=== PATIENT | male | born 1945 | race Caucasian/White ===

== ENCOUNTER 2017-05-02 12:12 | Emergency (ER) | payer OTHER, MEDICARE ==
[~2017-05-02] VITALS: Ht 167.6 cm; Wt 68.0 kg
[~2017-05-02 12:12] MED LIST: CHOLESTEROL MED; ENDOCET 325 MG-1 TA1 PO; HTN MED; MOTRIN 600 MG600 MG PO
--- NOTE | 2017-05-02 13:01 | ED GENERAL ADULT ---
History of Present Illness General Chief Complaint: General Adult Stated Complaint: BOSTON STOOLS Source: patient, old records, PCP Exam Limitations: no limitations Vital Signs & Intake/Output Vital Signs & Intake/Output Vital Signs Date Time Temp Pulse Resp B/P B/P Pulse O2 O2 Flow FiO2 Mean Ox Delivery Rate 05/02 1538 96.6 73 18 138/70 100 Room Air 05/02 1233 97.0 88 20 145/84 97 Room Air Room Air Allergies Coded Allergies: NO KNOWN ALLERGIES (08/03/14) Reconcile Medications Atorvastatin Calcium 40 MG TABLET 1 TAB PO DAILY CHOLESTEROL (Reported) Cholecalciferol (Vitamin D3) (Vitamin D) 1,000 UNIT CAPSULE 1 TAB PO DAILY SUPPLEMENT (Reported) Dexlansoprazole (Dexilant) 60 MG CAP.DR.BP 1 CAP PO DAILY GI (Reported) Fluticasone Propionate 50 MCG/ACTUATION SPRAY.SUSP 1 SPRAY NASB AD PRN ALLERGIES (Reported) Hydrochlorothiazide 25 MG TABLET 1 TAB PO DAILY BP (Reported) Lisinopril 40 MG TABLET 1 TAB PO DAILY BP (Reported) Triage Note: PT TO ED FROM [facility], HAD BLOODWORK YESTERDAY AND SENT IN FOR ABNORMAL LABS, FOR XRAY, US,CT. Triage Nurses Notes Reviewed? yes Onset: Gradual Duration: day(s): (7 DAYS) Timing: no prior history Injury Environment: home Severity: moderate No Modifying Factors: none HPI: Patient is a 71-year-old male presenting to the emergency department with chief complaint of boston stool that started about one week ago. Patient reports that every time he moves his bowels it is boston. Patient denying any associated nausea vomiting fevers or chills chest pain or shortness of breath. Denies any abdominal pain. No urinary frequency urgency or dysuria. He does admit to darker urine in color. He was nervous about the change in stool so he went to see his primary care physician who did blood work. Work showed elevation in his liver function tests and his bilirubin, the primary doctor advised him to come to the emergency department for evaluation for ultrasound of the gallbladder and liver. Patient reports that he could drinking alcohol 4 days ago. No history of withdrawal seizures. Use to drink about 12-15 drinks a day. (FERNANDO TUBBS) Past History Travel History Traveled to [place] past 21 day No Medical History Any Pertinent Medical History? see below for history Neurological: NONE EENT: NONE Cardiovascular: hypertension, hyperlipidemia Respiratory: NONE Gastrointestinal: GERD Hepatic: NONE Renal: NONE Musculoskeletal: NONE Psychiatric: NONE Endocrine: NONE Blood Disorders: NONE Cancer(s): NONE TSO/Reproductive: NONE Surgical History Surgical History: non-contributory Psychosocial History What is your primary language Kenyan Tobacco Use: Quit >30 days ago ETOH Use: heavy use Illicit Drug Use: denies illicit drug use Family History Hx Contributory? No (FERNANDO TUBBS) Review of Systems Review of Systems Constitutional: Reports: no symptoms. Comments Review of systems: See HPI, All other systems negative. Constitutional, no chills fever or weight loss HEENT: No visual changes no sore throat no congestion Cardiovascular: No chest pain ,palpitation , orthopnea or ankle swelling Skin, no jaundice no rashes Respiratory: No dyspnea cough sputum or hemoptysis GI: No nausea no vomiting : No dysuria No hematuria Muscle skeletal: no back pain, no neck pain, Neurologic: No numbness no confusion NO MITCHELL Psych: No stress anxiety or depression,. Heme/endocrine: No bruising no bleeding no polyuria or polydipsia Immunology: No splenectomy or history of AIDS (FERNANDO TUBBS) Physical Exam Physical Exam General Appearance: well developed/nourished, no apparent distress, alert, awake , comfortable Comments: Well-developed well-nourished person in no acute distress HEENT: extraocular motion intact, no nystagmus. Sclera icterus present. Pupils equally round and reactive to light and accommodation. Nose is atraumatic. External auditory canal and Tympanic membranes clear. Pharynx normal. No swelling or edema. Neck: Normal inspection Back: Nontender, no CVA tenderness. Full range of motion Cardiovascular: Regular rate and rhythms no murmurs rubs or gallops, normal JVP Respiratory: Chest nontender. No respiratory distress.breath sounds clear to auscultation bilaterally Abdomen: Soft, nontender nondistended, no appreciable organomegaly. Normal bowel sounds. No ascites, no rebound or guarding. Negative Mcgee's. rectal: Nontender, guaiac-negative, stool appears to be a light white/boston color Extremity: No edema Neuro: Alert oriented x3, motor sensory normal Skin: No appreciable rash on exposed skin, skin is warm and dry. Psych: Mood and affect is normal, memory and judgment is normal. Core Measures ACS in differential dx? No CVA/TIA Diagnosis: No Severe Sepsis Present: No Septic Shock Present: No (FERNANDO TUBBS) Progress Differential Diagnoses I considered the following diagnoses in my evaluation of the patient: Cholecystitis, cholangitis, hepatitis, pancreatic cancer, biliary cancer, pancreatitis, alcoholic hepatitis Plan of Care: Orders Procedure Date/time Status Add-on Test (ER Only) 05/02 1435 Active URINALYSIS 05/02 1428 Complete Add-on Test (ER Only) 05/02 1424 Active LIPASE 05/02 1317 Complete HEPATITIS PANEL 05/02 1317 Complete AMYLASE 05/02 1317 Complete PARTIAL THROMBOPLASTIN TIME 05/02 1301 Complete PROTHROMBIN TIME 05/02 1301 Complete LACTIC ACID 05/02 1301 Complete DIRECT BILIRUBIN 05/02 1301 Complete COMPREHENSIVE METABOLIC PANEL 05/02 1301 Complete CBC WITHOUT DIFFERENTIAL 05/02 1301 Complete TYPE & SCREEN (NOT X-MATCH) 05/02 1301 Complete Laboratory Tests 05/02/17 1601: Lactic Acid Cancelled 05/02/17 1432: Urinalysis MANY H, Urine Color YEL, Urine Clarity CLEAR, Urine pH 6.0, Ur Specific [place] 1.010, Urine Protein TRACE H, Urine Ketones NEG, Urine Nitrite NEG, Urine Bilirubin POS@ICTO H, Urine Urobilinogen 0.2, Ur Leukocyte Esterase NEG, Ur Microscopic SEDIMENT EXAMINED, Urine RBC 1-3, Urine WBC RARE, Ur Epithelial Cells FEW, Urine Bacteria FEW H, Hyaline Casts RARE H, Granular Casts RARE H, Urine Hemoglobin NEG, Urine Glucose NEG 05/02/17 1317: Anion Gap 11, Estimated GFR 50 L, BUN/Creatinine Ratio 12.1, Glucose 103 H, Lactic Acid 0.9, Calcium 9.3, Total Bilirubin 4.4 H, Direct Bilirubin 3.7 H, AST 411 H, ALT 421 H, Alkaline Phosphatase 614 H, Total Protein 7.3, Albumin 4.5, Globulin 2.8, Albumin/Globulin Ratio 1.6, Amylase 235 H, Lipase 709 H, PT 9.5, INR 0.90, APTT 38 H, CBC w Diff NO MAN DIFF REQ, RBC 4.10 L, MCV 94.2 H, MCH 31.9 H, RDW 14.5, MPV 8.5, Gran % 67.4, Lymphocytes % 19.2 L, Monocytes % 10.2 H, Eosinophils % 3.1, Basophils % 0.1, Absolute Granulocytes 6.5, Absolute Lymphocytes 1.8, Absolute Monocytes 1.0 H, Absolute Eosinophils 0.3, Absolute Basophils 0, PUBS MCHC 33.9, Hepatitis A IgM Ab NONREACTIVE, Hep Bs Antigen NONREACTIVE, Hep B Core IgM Ab Conf NONREACTIVE, Hepatitis C Antibody NONREACTIVE Diagnostic Imaging: Viewed by Me: Ultrasound. Discussed w/RAD: Ultrasound. Radiology Impression: PATIENT: MADELYN REDDY PRESENT AGE: 71 PATIENT ACCOUNT NO: [id number] : 43 LOCATION: ER ORDERING PHYSICIAN: FERNANDO DEWITT SERVICE DATE: 05/02/17 EXAM TYPE: US - US-LIMITED ABDOMEN EXAMINATION: US ABDOMEN LIMITED CLINICAL INFORMATION: Elevated liver function tests and bilirubin. Loose stool. COMPARISON: None. TECHNIQUE: Real-time imaging of the right upper quadrant abdominal viscera. Selected static images are provided for interpretation. FINDINGS: Only a small portion of the head and body of the pancreas are well visualized and appear unremarkable. Remaining pancreas is obscured due to overlying bowel gas despite provocative measures. The liver, gallbladder, and intrahepatic biliary tree appear unremarkable. The extrahepatic common duct is mildly dilated measuring 1.0 cm maximal dimension. Distal common duct is not visualized due to overlying bowel gas in the pancreatic head. Right kidney appears atrophic measuring 7.5 cm in maximal longitudinal dimension on the selected images provided. There is no hydronephrosis or nephrolithiasis identified. There is no intraperitoneal free fluid identified. Included portion of the aorta appears nonaneurysmal. IMPRESSION: 1. Limited pancreatic and distal common duct visualization due to overlying bowel gas. 2. Extrahepatic biliary ductal dilatation indeterminate etiology. 3. Abdominal MRI with and without contrast including MRCP imaging is recommended to further evaluate versus CT imaging with and without contrast., PATIENT: MADELYN REDDY PRESENT AGE: 71 PATIENT ACCOUNT NO: [id number] : 43 LOCATION: ER ORDERING PHYSICIAN: FERNANDO DEWITT SERVICE DATE: 05/02/17 EXAM TYPE: CAT - CT ABD & PELVIS W/ & W/O IV CO EXAMINATION: CT ABDOMEN AND PELVIS WITHOUT AND WITH CONTRAST CLINICAL INFORMATION: Icterus. Elevated LFTs. COMPARISON: Same day abdominal ultrasound. TECHNIQUE: Contiguous axial thin section helical images of the abdomen and pelvis were performed without oral contrast and prior to and following the administration of 100 mL of intravenous Ultravist 300. The data set was reformatted in the coronal and sagittal planes and reviewed on an independent workstation. DLP: 527 mGy-cm. FINDINGS: There is mild bronchial wall thickening and bronchiectasis within the lower lobes. There are a few small blebs present. Within the medial segment right middle lobe on image 10/672, there is a 2 mm calcified granuloma. Within the left lower lobe on image 3, there is a 2 mm calcified granuloma. Also within the left lower lobe on image 36, there is an approximately 1.2 cm mass with the suggestion of some peripheral spiculation. The visualized lung bases are otherwise clear. The visualized portions of the heart are unremarkable. There is a small hiatal hernia. The liver is of normal size and attenuation without focal lesions. There is intrahepatic biliary ductal dilation. The common duct is prominent measuring up to 14 mm. There is abrupt caliber change at the level of the pancreatic head. There is fullness to the pancreatic head with pancreatic ductal dilation measuring up to 5 mm. A discrete mass lesion is not identifiable. A normal gallbladder is identified. There is no wall thickening or discernible pericholecystic fluid. The spleen and adrenal glands are unremarkable. Both kidneys are of normal size and attenuation without hydronephrosis or nephrolithiasis. Following the administration of IV contrast, prompt symmetric nephrograms are displayed. There is no abdominal free fluid. There is neither mesenteric nor retroperitoneal lymphadenopathy. Normal unopacified loops of small and large bowel are identified. There is no pelvic free fluid. The urinary bladder is unremarkable. There is neither pelvic nor inguinal lymphadenopathy. Bone windows: Neither sclerotic nor lytic bone lesions are identified. IMPRESSION: Intrahepatic biliary ductal dilation, dilation of the common duct and fullness to the pancreatic head with ductal dilation within the pancreatic head. While a discrete pancreatic head mass is not identified, the appearance is suspicious for the presence of 1. Recommendation is for correlation with abdominal MRI with MRCP protocol. 12 mm nodule within the left lower lobe with suggestion of some peripheral spiculation. This is a concerning appearance for a lung neoplasm. Consider correlation with PET/CT for further tissue characterization. Small hiatal hernia. DICTATED BY: KEENAN JETT MD DATE/TIME DICTATED:05/02/171611 [employer] OPERATOR:SHASHANK DATE/TIME TRANSCRIBED:05/02/171611 CONFIDENTIAL, DO NOT COPY WITHOUT APPROPRIATE AUTHORIZATION. <Electronically signed in Other Vendor System> Initial ED EKG: none Comments: 05/02/2017 4:32:41 PM patient was informed of all imaging results and laboratory results. Spoke with Dr. Chapman regarding these findings. He is recommending outpatient assessment. Patient will likely need more imaging studies to see if there is an obstruction in the biliary pathway causing his change in stool color. Patient was informed of the urgency of following up with GI. He was also informed that this may be concerning for potential malignancy. He'll return to the emergency department for any fevers worsening symptoms or concerns. (DIMITRY DEWITT,FERNANDO) Departure Departure Time of Disposition: 1710 Disposition: HOME OR SELF CARE Condition: Stable Clinical Impression Primary Impression: Transaminitis Secondary Impressions: Romero-colored stools, Hyperbilirubinemia Referrals: MISAEL LIND,JOSIE Eric (PCP/Family) RONEY MONK,GAYATRI Richardson Additional Instructions: Follow-up with gastroenterology will need further evaluation concerning your discolored stool, elevated liver enzymes. Increase fluid intake. Return for any abdominal pain or fevers worsening symptoms or concerns. PATIENT: MADELYN REDDY PRESENT AGE: 71 PATIENT ACCOUNT NO: [id number] : 43 LOCATION: [facility] ORDERING PHYSICIAN: FERNANDO DEWITT SERVICE DATE: 05/02/17 EXAM TYPE: CAT - CT ABD & PELVIS W/ & W/O IV CO EXAMINATION: CT ABDOMEN AND PELVIS WITHOUT AND WITH CONTRAST CLINICAL INFORMATION: Icterus. Elevated LFTs. COMPARISON: Same day abdominal ultrasound. TECHNIQUE: Contiguous axial thin section helical images of the abdomen and pelvis were performed without oral contrast and prior to and following the administration of 100 mL of intravenous Ultravist 300. The data set was reformatted in the coronal and sagittal planes and reviewed on an independent workstation. DLP: 527 mGy-cm. FINDINGS: There is mild bronchial wall thickening and bronchiectasis within the lower lobes. There are a few small blebs present. Within the medial segment right middle lobe on image 10/2, there is a 2 mm calcified granuloma. Within the left lower lobe on image 3, there is a 2 mm calcified granuloma. Also within the left lower lobe on image 36, there is an approximately 1.2 cm mass with the suggestion of some peripheral spiculation. The visualized lung bases are otherwise clear. The visualized portions of the heart are unremarkable. There is a small hiatal hernia. The liver is of normal size and attenuation without focal lesions. There is intrahepatic biliary ductal dilation. The common duct is prominent measuring up to 14 mm. There is abrupt caliber change at the level of the pancreatic head. There is fullness to the pancreatic head with pancreatic ductal dilation measuring up to 5 mm. A discrete mass lesion is not identifiable. A normal gallbladder is identified. There is no wall thickening or discernible pericholecystic fluid. The spleen and adrenal glands are unremarkable. Both kidneys are of normal size and attenuation without hydronephrosis or nephrolithiasis. Following the administration of IV contrast, prompt symmetric nephrograms are displayed. There is no abdominal free fluid. There is neither mesenteric nor retroperitoneal lymphadenopathy. Normal unopacified loops of small and large bowel are identified. There is no pelvic free fluid. The urinary bladder is unremarkable. There is neither pelvic nor inguinal lymphadenopathy. Bone windows: Neither sclerotic nor lytic bone lesions are identified. IMPRESSION: Intrahepatic biliary ductal dilation, dilation of the common duct and fullness to the pancreatic head with ductal dilation within the pancreatic head. While a discrete pancreatic head mass is not identified, the appearance is suspicious for the presence of 1. Recommendation is for correlation with abdominal MRI with MRCP protocol. 12 mm nodule within the left lower lobe with suggestion of some peripheral spiculation. This is a concerning appearance for a lung neoplasm. Consider correlation with PET/CT for further tissue characterization. Small hiatal hernia. DICTATED BY: KEENAN JETT MD DATE/TIME DICTATED:05/02/171611 [employer] OPERATOR:SHASHANK DATE/TIME TRANSCRIBED:05/02/171611 CONFIDENTIAL, DO NOT COPY WITHOUT APPROPRIATE AUTHORIZATION. <Electronically signed in Other Vendor System> SIGNED BY: KEENAN JETT MD 05/02/17 770 Departure Forms: Customer Survey General Discharge Information (FERNANDO TUBBS) PA/CUSTOMS PATROL OFFICER Co-Sign Statement Statement: ED Attending supervision documentation- x I saw and evaluated the patient. I have also reviewed all the pertinent lab results and diagnostic results. I agree with the findings and the plan of care as documented in the PA's/CUSTOMS PATROL OFFICER's documentation. [] I have reviewed the ED Record and agree with the PA's/CUSTOMS PATROL OFFICER's documentation. [] Additions or exceptions (if any) to the PAs/CUSTOMS PATROL OFFICER's note and plan are summarized below: [] (CHUY MONK,DEZ) Critical Care Note Critical Care Note Critical Care Time: non-applicable (FERNANDO TUBBS)
[2017-05-02 13:24] LABS: ABSOLUTE BASOPHIL COUNT 0 /CUMM (0.0-0.2); ABSOLUTE EOSINOPHIL COUNT 0.3 /CUMM (0.0-0.7); ABSOLUTE GRANULOCYTE CT 6.5 /CUMM (1.4-6.5); ABSOLUTE LYMPH COUNT 1.8 /CUMM (1.2-3.4); BASOPHIL % 0.1 % (0.0-2.0); EOSINOPHIL % 3.1 % (0-5); GRANULOCYTE % 67.4 % (42.2-75.2); HEMATOCRIT 38.6 % (42-52); MEAN CORPUSCULAR HGB 31.9 PG (27.0-31.0); MEAN CORPUSCULAR HGB CONC 33.9 G/DL (33.0-37.0); MEAN CORPUSCULAR VOLUME 94.2 FL (80.0-94.0); MEAN PLATELET VOLUME 8.5 FL (7.4-10.4); PLATELET COUNT 277 /CUMM (130-400); RBC DISTRIBUTION WIDTH 14.5 % (11.5-14.5); WHITE BLOOD CELL COUNT 9.6 /CUMM (4.8-10.8)
[2017-05-02 13:32] LABS: PT 9.5 SEC (9.4-12.5); PTT 38 SEC (25-37)
--- NOTE | 2017-05-02 15:23 | ULTRASOUND REPORT ---
EXAMINATION: US ABDOMEN LIMITED CLINICAL INFORMATION: Elevated liver function tests and bilirubin. Loose stool. COMPARISON: None. TECHNIQUE: Real-time imaging of the right upper quadrant abdominal viscera. Selected static images are provided for interpretation. FINDINGS: Only a small portion of the head and body of the pancreas are well visualized and appear unremarkable. Remaining pancreas is obscured due to overlying bowel gas despite provocative measures. The liver, gallbladder, and intrahepatic biliary tree appear unremarkable. The extrahepatic common duct is mildly dilated measuring 1.0 cm maximal dimension. Distal common duct is not visualized due to overlying bowel gas in the pancreatic head. Right kidney appears atrophic measuring 7.5 cm in maximal longitudinal dimension on the selected images provided. There is no hydronephrosis or nephrolithiasis identified. There is no intraperitoneal free fluid identified. Included portion of the aorta appears nonaneurysmal. IMPRESSION: 1. Limited pancreatic and distal common duct visualization due to overlying bowel gas. 2. Extrahepatic biliary ductal dilatation indeterminate etiology. 3. Abdominal MRI with and without contrast including MRCP imaging is recommended to further evaluate versus CT imaging with and without contrast.
--- NOTE | 2017-05-02 16:28 | CT SCAN REPORT ---
EXAMINATION: CT ABDOMEN AND PELVIS WITHOUT AND WITH CONTRAST CLINICAL INFORMATION: Icterus. Elevated LFTs. COMPARISON: Same day abdominal ultrasound. TECHNIQUE: Contiguous axial thin section helical images of the abdomen and pelvis were performed without oral contrast and prior to and following the administration of 100 mL of intravenous Ultravist 300. The data set was reformatted in the coronal and sagittal planes and reviewed on an independent workstation. DLP: 527 mGy-cm. FINDINGS: There is mild bronchial wall thickening and bronchiectasis within the lower lobes. There are a few small blebs present. Within the medial segment right middle lobe on image 10/672, there is a 2 mm calcified granuloma. Within the left lower lobe on image 3, there is a 2 mm calcified granuloma. Also within the left lower lobe on image 36, there is an approximately 1.2 cm mass with the suggestion of some peripheral spiculation. The visualized lung bases are otherwise clear. The visualized portions of the heart are unremarkable. There is a small hiatal hernia. The liver is of normal size and attenuation without focal lesions. There is intrahepatic biliary ductal dilation. The common duct is prominent measuring up to 14 mm. There is abrupt caliber change at the level of the pancreatic head. There is fullness to the pancreatic head with pancreatic ductal dilation measuring up to 5 mm. A discrete mass lesion is not identifiable. A normal gallbladder is identified. There is no wall thickening or discernible pericholecystic fluid. The spleen and adrenal glands are unremarkable. Both kidneys are of normal size and attenuation without hydronephrosis or nephrolithiasis. Following the administration of IV contrast, prompt symmetric nephrograms are displayed. There is no abdominal free fluid. There is neither mesenteric nor retroperitoneal lymphadenopathy. Normal unopacified loops of small and large bowel are identified. There is no pelvic free fluid. The urinary bladder is unremarkable. There is neither pelvic nor inguinal lymphadenopathy. Bone windows: Neither sclerotic nor lytic bone lesions are identified. IMPRESSION: Intrahepatic biliary ductal dilation, dilation of the common duct and fullness to the pancreatic head with ductal dilation within the pancreatic head. While a discrete pancreatic head mass is not identified, the appearance is suspicious for the presence of 1. Recommendation is for correlation with abdominal MRI with MRCP protocol. 12 mm nodule within the left lower lobe with suggestion of some peripheral spiculation. This is a concerning appearance for a lung neoplasm. Consider correlation with PET/CT for further tissue characterization. Small hiatal hernia.
[2017-05-02] MEDS ORDERED: LISINOPRIL40 M1 PO (16:51)
[2017-05-02] MEDS ORDERED: ATORVASTATIN CA40 M1 PO (16:51)
[2017-05-02] MEDS ORDERED: HYDROCHLOROTHIA25 M1 PO (16:51)
[2017-05-02] MEDS ORDERED: DEXILANT60 M1 PO (16:51)
[2017-05-02] MEDS ORDERED: FLUTICASONE PRO16 GM NASB (16:52)
[2017-05-02] MEDS ORDERED: VITAMIN D1000 UNI1 PO (16:52)
[2017-05-02 17:49] VITALS: BP 135/74
== END 2017-05-02 17:50 ==
LOC: ERH 12:12
PROVIDERS: Physician Assistant
DX: E80.6 Other disorders of bilirubin metabolism (principal); R74.0 Nonspecific elevation of levels of transaminase and lactic acid dehydrogenase [LDH]; R19.5 Other fecal abnormalities
CPT/HCPCS: 74178; 81001; 96360